=== PATIENT | female | born 1955 | race Caucasian/White ===

== ENCOUNTER 2023-04-07 08:45 | Outpatient (RCR) | payer MEDICARE, BC, SELFPAY ==
[2023-04-07] VITALS (7 sets, daily range): BP systolic 125–157; BP diastolic 77–83
[2023-04-07 09:33] LABS: % Basophils 0.5 % (0-2); % Eosinophils 1.7 % (0-6); % Immature Granulocytes 0.7 % (0-0.5); % Lymphocytes 16.4 % (20.5-51.1); % Monocytes 6.1 % (1.7-9.3); % Neutrophils 74.6 % (42.2-75.2); Absolute Eosinophils 0.1 10^3/uL (0-0.7); Absolute Immature Granulocytes 0.1 10^3/uL (0-0.05); Absolute Lymphocytes 1.2 10^3/uL (1.2-3.4); Absolute Monocytes 0.5 10^3/uL (0.1-0.6); Absolute Neutrophils 5.6 10^3/uL (1.4-6.5); Hematocrit 37.1 % (37.0-47.0); Hemoglobin 13.1 g/dL (12.0-16.0); Mean Corp Hgb Conc. 35.3 g/dL (33.0-37.0); Mean Corpuscular Hgb 31.8 pg (27.0-31.0); Mean Platelet Volume 10.3 fL (7.4-10.4); Nucleated Red Blood Cells % 0 %; Platelet Count 260 10^3/uL (130-400); Red Blood Cell Count 4.12 10^6/uL (4.20-5.40); Red Cell Dist. Width 11.9 % (11.5-14.5); White Blood Cell Count 7.6 10^3/uL (4.8-10.8)
[2023-04-07 09:54] LABS: ALT (SGPT) 80 U/L (0-35); AST (SGOT) 88 U/L (14-36); Alkaline Phosphatase 119 U/L (38-126); Blood Urea Nitrogen 21 mg/dl (7-17); Calcium 8.9 mg/dl (8.4-10.2); Carbon Dioxide 28 mmol/L (22-30); Chloride 105 mmol/L (98-107); Glucose 87 mg/dl (70-99); Iron 114 ug/dl (37-170); Magnesium 2.2 mg/dl (1.6-2.3); Potassium 4.6 mmol/L (3.5-5.1); Sodium 133 mmol/L (135-145); Total Bilirubin 0.9 mg/dl (0.2-1.3); Total Cholesterol 258 mg/dl (50-199); Total Protein 6.1 g/dl (6.3-8.2); Triglyceride 76 mg/dl (10-149); Uric Acid 4.4 mg/dl (2.5-6.2); Very Low Density Lipoprotein 15 mg/dl (0-30); eGFR > 60.00
[2023-04-07 10:02] LABS: HDL Cholesterol 130 mg/dl; LDL Cholesterol, Calculated 113 mg/dl
[2023-04-07 10:03] LABS: Percent Saturation 39 % (20-50); Total Iron Binding Capacity 292 ug/dl (265-497)
[2023-04-07] MEDS: TYLENOL 650 MG PO (10:33)
[2023-04-07] MEDS: SOLU-MEDROL PF 51.6000000000000014 MG IV (10:33)
[2023-04-07] MEDS: NSS 500 IV (10:34)
[2023-04-07 10:48] LABS: Vitamin D, 25-OH*** < 12.8 ng/mL (30-80)
[2023-04-07] MEDS: BENADRYL 51 MG IV (11:00)
[2023-04-07 11:02] LABS: TSH Reflex To Free T4 2.25 uIU/ml (0.47-4.68)
[2023-04-07 11:06] LABS: Ferritin 60.3 ng/ml (11.1-264.0)
[2023-04-07 11:21] LABS: Vitamin B12 410 pg/ml (239-931)
[2023-04-07] MEDS: OCREVUS 520 MG IV (11:23)
[2023-04-08 11:39] LABS: CRP, Highly Sensitive 1.65 mg/L
[2023-04-08 21:35] LABS: Transferrin 241 mg/dL (200-360)
== END 2023-04-08 10:55 | disposition home or self-care (01) ==
LOC: OID 08:45
PROVIDERS: Internal Medicine Cardiovascular Disease; ATTENDING PHYSICIAN Psychiatry & Neurology Neurology; FAMILY PHYSICIAN Nurse Practitioner Family
DX: G35 Multiple sclerosis (principal)
CPT/HCPCS: 80053; 80061; 82306; 82607; 82728; 83540; 83550; 83735; 84443; 84466; 84550; 85025; 86141; 96360; 96361; 96365; 96366; 96367; 96368; J2350

== ENCOUNTER → 2023-05-20 12:27 | Outpatient (REF) | payer MEDICARE, BC, SELFPAY | LOC: HWRAD 12:27 | PROVIDERS: ATTENDING PHYSICIAN Nurse Practitioner Family | DX: Z12.31 Encounter for screening mammogram for malignant neoplasm of breast (principal); Z78.0 Asymptomatic menopausal state | CPT/HCPCS: 77063; 77067; 77080 ==

== ENCOUNTER → 2023-06-17 10:27 | Outpatient (REF) | payer MEDICARE, BC, SELFPAY ==
[2023-06-17 13:05] LABS: % Basophils 0.8 % (0-2); % Eosinophils 3.3 % (0-6); % Immature Granulocytes 0.6 % (0-0.5); % Lymphocytes 23.9 % (20.5-51.1); % Monocytes 6.8 % (1.7-9.3); % Neutrophils 64.6 % (42.2-75.2); Absolute Basophils 0.1 10^3/uL (0-0.2); Absolute Eosinophils 0.2 10^3/uL (0-0.7); Absolute Lymphocytes 1.7 10^3/uL (1.2-3.4); Absolute Monocytes 0.5 10^3/uL (0.1-0.6); Absolute Neutrophils 4.6 10^3/uL (1.4-6.5); Hematocrit 42.7 % (37.0-47.0); Hemoglobin 14.5 g/dL (12.0-16.0); Mean Corpuscular Hgb 30.9 pg (27.0-31.0); Mean Platelet Volume 10.7 fL (7.4-10.4); Nucleated Red Blood Cells % 0 %; Platelet Count 324 10^3/uL (130-400); Red Blood Cell Count 4.69 10^6/uL (4.20-5.40); Red Cell Dist. Width 12.3 % (11.5-14.5); White Blood Cell Count 7.1 10^3/uL (4.8-10.8)
[2023-06-17 14:29] LABS: TSH Reflex To Free T4 2.43 uIU/ml (0.47-4.68)
[2023-06-17 14:34] LABS: Hepatitis B Surface Antigen Negative (Negative)
[2023-06-17 14:39] LABS: ALT (SGPT) 44 U/L (0-35); AST (SGOT) 39 U/L (14-36); Albumin 4.7 g/dl (3.5-5.0); Alkaline Phosphatase 114 U/L (38-126); Blood Urea Nitrogen 14 mg/dl (7-17); Calcium 9.8 mg/dl (8.4-10.2); Carbon Dioxide 26 mmol/L (22-30); Chloride 103 mmol/L (98-107); GGTP 95 U/L (12-43); Glucose 95 mg/dl (70-99); Potassium 4.6 mmol/L (3.5-5.1); Sodium 135 mmol/L (135-145); Total Bilirubin 0.9 mg/dl (0.2-1.3); Total Protein 7.2 g/dl (6.3-8.2); eGFR > 60.00
[2023-06-17 14:51] LABS: Hepatitis B Surface Antibody Positive; Hepatitis C Antibody Negative (Negative)
[2023-06-17 19:44] LABS: Hepatitis A Antibody, Total Negative (Negative)
== END ==
LOC: HWLAB 10:27
PROVIDERS: ATTENDING PHYSICIAN Nurse Practitioner Family
DX: R94.5 Abnormal results of liver function studies (principal); Z12.31 Encounter for screening mammogram for malignant neoplasm of breast; Z78.0 Asymptomatic menopausal state; E55.9 Vitamin D deficiency, unspecified; Z00.00 Encounter for general adult medical examination without abnormal findings; Z79.899 Other long term (current) drug therapy
CPT/HCPCS: 36415; 80053; 82977; 84443; 85025; 86706; 86708; 86803; 87340

== ENCOUNTER 2023-10-07 07:36 | Outpatient (RCR) | payer MEDICARE, BC, SELFPAY ==
[2023-10-07] VITALS (8 sets, daily range): BP systolic 107–139; BP diastolic 60–76
[2023-10-07 08:19] LABS: % Basophils 0.4 % (0-2); % Eosinophils 3.6 % (0-6); % Immature Granulocytes 0.3 % (0-0.5); % Lymphocytes 18.7 % (20.5-51.1); % Monocytes 7.3 % (1.7-9.3); % Neutrophils 69.7 % (42.2-75.2); Absolute Eosinophils 0.3 10^3/uL (0-0.7); Absolute Lymphocytes 1.4 10^3/uL (1.2-3.4); Absolute Monocytes 0.6 10^3/uL (0.1-0.6); Absolute Neutrophils 5.3 10^3/uL (1.4-6.5); Hematocrit 39.3 % (37.0-47.0); Hemoglobin 13.9 g/dL (12.0-16.0); Mean Corp Hgb Conc. 35.4 g/dL (33.0-37.0); Mean Corpuscular Hgb 32.3 pg (27.0-31.0); Mean Corpuscular Volume 91.2 fL (81.0-99.0); Mean Platelet Volume 9.9 fL (7.4-10.4); Platelet Count 275 10^3/uL (130-400); Red Blood Cell Count 4.31 10^6/uL (4.20-5.40); Red Cell Dist. Width 12.1 % (11.5-14.5); White Blood Cell Count 7.6 10^3/uL (4.8-10.8)
[2023-10-07] MEDS: NSS 500 IV (08:35)
[2023-10-07] MEDS: TYLENOL 650 MG PO (08:35)
[2023-10-07] MEDS: BENADRYL 51 MG IV (08:40)
[2023-10-07] MEDS: SOLU-MEDROL PF 51.6 MG IV (09:05)
[2023-10-07] MEDS: OCREVUS 520 MG IV (09:37)
[2023-10-07 09:40] LABS: ALT (SGPT) 31 U/L (0-35); AST (SGOT) 30 U/L (14-36); Albumin 4.1 g/dl (3.5-5.0); Alkaline Phosphatase 89 U/L (38-126); Blood Urea Nitrogen 19 mg/dl (7-17); Calcium 9.9 mg/dl (8.4-10.2); Carbon Dioxide 29 mmol/L (22-30); Chloride 102 mmol/L (98-107); Glucose 89 mg/dl (70-99); Potassium 4.3 mmol/L (3.5-5.1); Sodium 137 mmol/L (135-145); Total Bilirubin 0.8 mg/dl (0.2-1.3); Total Protein 6.3 g/dl (6.3-8.2); eGFR > 60.00
[2023-10-07 10:02] LABS: Erythrocyte Sed Rate 9 mm/hour (0-20)
[2023-10-07 10:07] LABS: TSH Reflex To Free T4 2.74 uIU/ml (0.47-4.68)
[2023-10-09 01:18] LABS: ANA, IgG Reflex to HEp-2 None Detected (None Detected)
[2023-10-09 09:10] LABS: Vitamin D 1,25 Dihydroxy 56.6 pg/mL (19.9-79.3)
== END 2023-10-08 08:12 | disposition home or self-care (01) ==
LOC: OID 07:36
PROVIDERS: ATTENDING PHYSICIAN Psychiatry & Neurology Neurology; FAMILY PHYSICIAN Nurse Practitioner Family
DX: G35 Multiple sclerosis (principal)
CPT/HCPCS: 36415; 80053; 82652; 84443; 85025; 85652; 86038; 96367; 96413; 96415; J2350

== ENCOUNTER 2024-04-09 10:43 | Outpatient (RCR) | payer MEDICARE, BC, SELFPAY ==
[2024-04-09] VITALS (7 sets, daily range): BP systolic 125–139; BP diastolic 72–81
[2024-04-09 11:17] LABS: % Basophils 0.1 % (0-2); % Eosinophils 1.5 % (0-6); % Immature Granulocytes 0.1 % (0-0.5); % Lymphocytes 13.4 % (20.5-51.1); % Monocytes 4.8 % (1.7-9.3); % Neutrophils 80.1 % (42.2-75.2); Absolute Eosinophils 0.1 10^3/uL (0-0.7); Absolute Lymphocytes 1.1 10^3/uL (1.2-3.4); Absolute Monocytes 0.4 10^3/uL (0.1-0.6); Absolute Neutrophils 6.8 10^3/uL (1.4-6.5); Hematocrit 37.9 % (37.0-47.0); Hemoglobin 12.9 g/dL (12.0-16.0); Mean Corpuscular Hgb 30.7 pg (27.0-31.0); Mean Corpuscular Volume 90.2 fL (81.0-99.0); Mean Platelet Volume 9.3 fL (7.4-10.4); Platelet Count 251 10^3/uL (130-400); Red Cell Dist. Width 11.8 % (11.5-14.5); White Blood Cell Count 8.5 10^3/uL (4.8-10.8)
[2024-04-09] MEDS: TYLENOL 650 MG PO (11:20)
[2024-04-09] MEDS: SOLU-MEDROL PF 51.6 MG IV (11:21)
[2024-04-09] MEDS: NSS 500 IV (11:21)
[2024-04-09] MEDS: BENADRYL 51 MG IV (11:53)
[2024-04-09] MEDS: OCREVUS 520 MG IV (12:22)
== END 2024-04-12 09:01 | disposition home or self-care (01) ==
LOC: OID 10:43
PROVIDERS: ATTENDING PHYSICIAN Psychiatry & Neurology Neurology; FAMILY PHYSICIAN Nurse Practitioner Family
DX: G35 Multiple sclerosis (principal)
CPT/HCPCS: 85025; 96367; 96413; 96415; J2350

== ENCOUNTER 2024-10-07 10:12 | Outpatient (RCR) | payer MEDICARE, BC, SELFPAY ==
[2024-10-07] VITALS (11 sets, daily range): BP systolic 112–135; BP diastolic 64–95
[2024-10-07 10:30] LABS: Hematocrit 40.9 % (37.0-47.0); Hemoglobin 13.7 g/dL (12.0-16.0); Mean Corp Hgb Conc. 33.5 g/dL (33.0-37.0); Mean Corpuscular Volume 90.1 fL (81.0-99.0); Platelet Count 271 10^3/uL (130-400); Red Cell Dist. Width 11.9 % (11.5-14.5)
[2024-10-07] MEDS: TYLENOL 650 MG PO (10:53)
[2024-10-07] MEDS: NSS 500 IV (10:53)
[2024-10-07] MEDS: SOLU-MEDROL PF 51.6 MG IV (10:53)
[2024-10-07] MEDS: BENADRYL 51 MG IV (11:19)
[2024-10-07] MEDS: OCREVUS 520 MG IV (11:49)
== END 2024-10-08 08:03 | disposition home or self-care (01) ==
LOC: OID 10:12
PROVIDERS: ATTENDING PHYSICIAN Psychiatry & Neurology Neurology; FAMILY PHYSICIAN Nurse Practitioner Family
DX: G35 Multiple sclerosis (principal)
CPT/HCPCS: 85025; 96365; 96366; 96367; J2350